=== PATIENT | male | born 1965 | race Caucasian/White ===

== ENCOUNTER 2021-08-16 12:48 | Inpatient (IN) | payer MEDICAID ==
[~2021-08-16] VITALS: Ht 182.9 cm; Wt 82.2 kg
[~2021-08-16 12:48] MED LIST: BENZ1TAB7 PO; DIVA-75 PO; DIVA250T4; HALO5TAB PO; MIRT-89 PO; RISP1TAB97 PO
[2021-08-16 14:01] LABS: BASOPHILS % 0.4 % (0.0-2.0); EOSINOPHILS % 2.4 % (0.0-5.0); HEMATOCRIT. 39.9 % (42.0-52.0); HEMOGLOBIN. 13.4 g/dL (14.0-18.0); MEAN CORPUSCULAR HEMOGLOBIN 29.6 pg (28.0-32.0); MEAN CORPUSCULAR VOLUME 87.9 fL (80.0-94.0); MEAN PLATELET VOLUME 7.6 fl (7.4-10.4); MONOCYTES % 11.6 % (2.0-8.0); NEUTROPHILS % 55.6 % (40.0-76.0); PLATELET 181 x1000/uL (130-400); RED BLOOD CELL COUNT 4.54 mill/uL (4.7-6.1); RED CELL DISTRIBUTION WIDTH 14.1 % (11.6-14.6)
[2021-08-16 14:10] LABS: CHLORIDE 101 mEq/L (98-107)
[2021-08-16 14:15] LABS: ETHANOL BLOOD < 10 mg/dL
[2021-08-16] MEDS ORDERED: SODIUM CHLORIDE 0.9% 1,000 ML IV ONE (14:45)
[2021-08-16] MEDS ORDERED: POTASSIUM CHLORIDE 20MEQ TABLET SR PO ONE (14:45)
[2021-08-16] MEDS ORDERED: LEVOFLOXACIN 750MG PREMIX 150 ML IV ONE (14:45)
[2021-08-16] MEDS ORDERED: LORAZEPAM 2MG/ML CPJ IV ONE (15:15)
[2021-08-16 15:57] LABS: INR 1.1; PARTIAL THROMBOPLASTIN TIME 26.5 sec (23.4-31.0); PROTHROMBIN TIME 11.5 sec (9.6-11.0)
[2021-08-16] MEDS: RISPERIDONE 1MG TABLET PO SCH (16:00)
[2021-08-16] MEDS: BENZTROPINE MESYLATE 1MG TABLET PO SCH (16:00)
[2021-08-16] MEDS ORDERED: DIVALPROEX SODIUM 500MG ER TABLET PO SCH (16:30)
[2021-08-16] MEDS ORDERED: IPRATROPIUM/ALBUTEROL 0.5-3(2.5)MG/3ML NEB HHN PRN (18:00)
[2021-08-16] MEDS ORDERED: HYDROCODONE/ACETAMINOPHEN 5/325MG TABLET PO PRN (18:00)
[2021-08-16] MEDS ORDERED: CLONIDINE 0.1MG TABLET PO PRN (18:00)
[2021-08-16] MEDS ORDERED: ACETAMINOPHEN 325MG TABLET PO PRN ×2 (18:00)
[2021-08-16] MEDS ORDERED: DOCUSATE SODIUM 100MG CAPSULE PO PRN (18:00)
[2021-08-16] MEDS ORDERED: ONDANSETRON HCL 4MG/2ML INJ IV PRN (18:00)
[2021-08-16] MEDS ORDERED: NALOXONE HCL 0.4MG/ML VIAL IV PRN (18:30)
[2021-08-16] MEDS: MIRTAZAPINE 15MG TABLET PO SCH (21:00)
[2021-08-16] MEDS ORDERED: ENOXAPARIN 80MG/0.8ML SYR SUBCUT ONE (22:00)
[2021-08-17 09:13] VITALS: BP 124/73
[2021-08-17] MEDS: RISPERIDONE 1MG TABLET PO SCH (10:01)
[2021-08-17] MEDS: BENZTROPINE MESYLATE 1MG TABLET PO SCH (10:01)
[2021-08-17 12:34] VITALS: BP 130/73
[2021-08-17] MEDS: ENOXAPARIN 80MG/0.8ML SYR SUBCUT SCH (14:00)
[2021-08-17 16:00] VITALS: BP 123/79
[2021-08-17 20:00] VITALS: BP 126/73
[2021-08-17] MEDS: MIRTAZAPINE 15MG TABLET PO SCH (20:44)
[2021-08-18] VITALS: BP_SYST 119; BP_SYST 128; BP_DIAS 51; BP_DIAS 76
[2021-08-18] MEDS: ENOXAPARIN 80MG/0.8ML SYR SUBCUT SCH ×3 (01:00→22:27)
[2021-08-18 04:00] VITALS: BP 120/79
[2021-08-18 08:01] VITALS: BP 124/68
[2021-08-18] MEDS: RISPERIDONE 1MG TABLET PO SCH (08:53)
[2021-08-18] MEDS: BENZTROPINE MESYLATE 1MG TABLET PO SCH (08:53)
[2021-08-18 12:00] VITALS: BP 111/63
[2021-08-18 20:00] VITALS: BP 138/88
[2021-08-18] MEDS: MIRTAZAPINE 15MG TABLET PO SCH (20:01)
[2021-08-18] MEDS: LORAZEPAM 0.5MG TABLET PO PRN (20:11)
[2021-08-19] VITALS: BP 119/51
[2021-08-19 04:00] VITALS: BP 109/62
[2021-08-19] MEDS: BENZTROPINE MESYLATE 1MG TABLET PO SCH (08:42)
[2021-08-19] MEDS: RISPERIDONE 1MG TABLET PO SCH (08:42)
[2021-08-19] MEDS: ENOXAPARIN 80MG/0.8ML SYR SUBCUT SCH ×2 (08:42→21:05)
[2021-08-19 12:00] VITALS: BP 125/81
[2021-08-19 16:00] VITALS: BP 132/76
[2021-08-19 17:12] LABS: *AMPHETAMINES SCREEN URINE NEGATIVE (NEGATIVE); *BARBITURATES SCREEN URINE NEGATIVE (NEGATIVE); *BENZODIAZEPINES SCREEN URINE NEGATIVE (NEGATIVE); *COCAINE SCREEN URINE NEGATIVE (NEGATIVE); METHADONE URINE SCREEN NEGATIVE (NEGATIVE)
[2021-08-19 17:13] LABS: CANNABINOID URINE SCREEN NEGATIVE (NEGATIVE); OPIATES URINE SCREEN NEGATIVE (NEGATIVE); PHENCYCLIDINE URINE SCREEN NEGATIVE (NEGATIVE)
[2021-08-19] MEDS: LORAZEPAM 0.5MG TABLET PO PRN (17:38)
[2021-08-19 18:15] VITALS: BP 132/76
[2021-08-19 20:00] VITALS: BP 122/72
[2021-08-19] MEDS: MIRTAZAPINE 15MG TABLET PO SCH (21:05)
[2021-08-20 04:00] VITALS: BP 116/74
[2021-08-20 04:32] VITALS: BP 122/72
[2021-08-20 07:22] LABS: BASOPHILS % 0.5 % (0.0-2.0); EOSINOPHILS % 3.7 % (0.0-5.0); HEMOGLOBIN. 14.4 g/dL (14.0-18.0); LYMPHOCYTES % 36.7 % (20.0-50.0); MEAN CORPUSCULAR HEMOGLOBIN 30.3 pg (28.0-32.0); MEAN CORPUSCULAR VOLUME 86.6 fL (80.0-94.0); MEAN PLATELET VOLUME 7.7 fl (7.4-10.4); MONOCYTES % 11.7 % (2.0-8.0); NEUTROPHILS % 47.4 % (40.0-76.0); PLATELET 189 x1000/uL (130-400); RED BLOOD CELL COUNT 4.74 mill/uL (4.7-6.1)
[2021-08-20 07:31] LABS: CHLORIDE 104 mEq/L (98-107)
[2021-08-20 08:00] VITALS: BP 121/65
[2021-08-20] MEDS: RISPERIDONE 1MG TABLET PO SCH (09:14)
[2021-08-20] MEDS: BENZTROPINE MESYLATE 1MG TABLET PO SCH (09:14)
[2021-08-20] MEDS: ENOXAPARIN 80MG/0.8ML SYR SUBCUT SCH ×2 (09:15→20:04)
[2021-08-20] MEDS ORDERED: APIX5TAB MT (12:02)
[2021-08-20] MEDS ORDERED: BENZ1TAB7 PO (12:02)
[2021-08-20] MEDS ORDERED: RISP1 PO (12:02)
[2021-08-20] MEDS ORDERED: MIRT-89 PO (12:02)
[2021-08-20] MEDS: LORAZEPAM 0.5MG TABLET PO PRN (15:45)
[2021-08-20 17:00] VITALS: BP 115/64
[2021-08-20] MEDS: MIRTAZAPINE 15MG TABLET PO SCH (20:04)
[2021-08-21] VITALS: BP 103/57
[2021-08-21 04:00] VITALS: BP 108/60
[2021-08-21 07:33] VITALS: BP 127/81
[2021-08-21] MEDS: BENZTROPINE MESYLATE 1MG TABLET PO SCH (08:51)
[2021-08-21] MEDS: ENOXAPARIN 80MG/0.8ML SYR SUBCUT SCH ×2 (08:51→20:29)
[2021-08-21] MEDS: RISPERIDONE 1MG TABLET PO SCH (08:51)
[2021-08-21 11:56] VITALS: BP 120/78
[2021-08-21 16:00] VITALS: BP 125/76
[2021-08-21 20:00] VITALS: BP 115/57
[2021-08-21] MEDS: MIRTAZAPINE 15MG TABLET PO SCH (20:29)
[2021-08-22] VITALS: BP 113/64
[2021-08-22 04:00] VITALS: BP 116/60
[2021-08-22 08:00] VITALS: BP 144/66
[2021-08-22] MEDS: BENZTROPINE MESYLATE 1MG TABLET PO SCH ×2 (09:11→17:47)
[2021-08-22] MEDS: ENOXAPARIN 80MG/0.8ML SYR SUBCUT SCH ×2 (09:11→20:16)
[2021-08-22] MEDS: RISPERIDONE 1MG TABLET PO SCH (09:11)
[2021-08-22 12:00] VITALS: BP 134/90
[2021-08-22 16:05] VITALS: BP 122/70
[2021-08-22 20:00] VITALS: BP 119/65
[2021-08-22] MEDS: MIRTAZAPINE 15MG TABLET PO SCH (20:15)
[2021-08-23] VITALS: BP 101/60
[2021-08-23 04:00] VITALS: BP 121/67
[2021-08-23 08:00] VITALS: BP 117/71
[2021-08-23] MEDS: ENOXAPARIN 80MG/0.8ML SYR SUBCUT SCH ×2 (09:13→20:25)
[2021-08-23] MEDS: RISPERIDONE 1MG TABLET PO SCH (09:14)
[2021-08-23] MEDS: BENZTROPINE MESYLATE 1MG TABLET PO SCH ×2 (09:14→16:50)
[2021-08-23] MEDS: DIVALPROEX SODIUM 500MG ER TABLET PO SCH (09:14)
[2021-08-23 12:00] VITALS: BP 122/67
[2021-08-23 16:01] VITALS: BP 133/67
[2021-08-23 20:00] VITALS: BP 118/68
[2021-08-23] MEDS: MIRTAZAPINE 15MG TABLET PO SCH (20:25)
[2021-08-24 04:00] VITALS: BP 105/65
[2021-08-24 06:44] LABS: CHLORIDE 105 mEq/L (98-107)
[2021-08-24 06:47] LABS: BASOPHILS % 0.6 % (0.0-2.0); EOSINOPHILS % 3.6 % (0.0-5.0); HEMATOCRIT. 37.3 % (42.0-52.0); HEMOGLOBIN. 12.9 g/dL (14.0-18.0); LYMPHOCYTES % 38.5 % (20.0-50.0); MEAN CORPUSCULAR HEMOGLOBIN 30.4 pg (28.0-32.0); MEAN CORPUSCULAR VOLUME 87.6 fL (80.0-94.0); MEAN PLATELET VOLUME 8.4 fl (7.4-10.4); MONOCYTES % 11.7 % (2.0-8.0); NEUTROPHILS % 45.6 % (40.0-76.0); PLATELET 174 x1000/uL (130-400); RED BLOOD CELL COUNT 4.25 mill/uL (4.7-6.1); RED CELL DISTRIBUTION WIDTH 13.9 % (11.6-14.6)
[2021-08-24 08:00] VITALS: BP 110/69
[2021-08-24] MEDS: ENOXAPARIN 80MG/0.8ML SYR SUBCUT SCH ×2 (08:28→20:20)
[2021-08-24] MEDS: DIVALPROEX SODIUM 500MG ER TABLET PO SCH (08:28)
[2021-08-24] MEDS: RISPERIDONE 1MG TABLET PO SCH (08:28)
[2021-08-24] MEDS: BENZTROPINE MESYLATE 1MG TABLET PO SCH ×2 (08:28→17:52)
[2021-08-24 12:10] VITALS: BP 108/68
[2021-08-24 16:21] VITALS: BP 132/82
[2021-08-24] MEDS ORDERED: POTASSIUM CHLORIDE 20MEQ TABLET SR PO NR (19:15)
[2021-08-24 19:23] VITALS: BP 114/63
[2021-08-24] MEDS: MIRTAZAPINE 15MG TABLET PO SCH (20:19)
[2021-08-25] VITALS (7 sets, daily range): BP systolic 104–144; BP diastolic 58–94
[2021-08-25] MEDS: DIVALPROEX SODIUM 500MG ER TABLET PO SCH (08:22)
[2021-08-25] MEDS: BENZTROPINE MESYLATE 1MG TABLET PO SCH ×2 (08:22→17:37)
[2021-08-25] MEDS: ENOXAPARIN 80MG/0.8ML SYR SUBCUT SCH ×2 (08:23→20:40)
[2021-08-25] MEDS: RISPERIDONE 1MG TABLET PO SCH (08:23)
[2021-08-25] MEDS: MIRTAZAPINE 15MG TABLET PO SCH (20:40)
[2021-08-26] VITALS: BP 111/47
[2021-08-26 04:00] VITALS: BP 108/61
[2021-08-26 08:00] VITALS: BP 139/72
[2021-08-26] MEDS: DIVALPROEX SODIUM 500MG ER TABLET PO SCH (09:37)
[2021-08-26] MEDS: BENZTROPINE MESYLATE 1MG TABLET PO SCH (09:38)
[2021-08-26] MEDS: RISPERIDONE 1MG TABLET PO SCH (09:38)
[2021-08-26] MEDS: ENOXAPARIN 80MG/0.8ML SYR SUBCUT SCH (09:39)
== END 2021-08-26 10:35 | disposition home or self-care (01) | DRG 817 ==
LOC: ER 12:48 → MICUSO 15:25 → EDBEDREQ 15:30 → EDBEDREQTM 15:30 → 6WST 08-17 07:25
PROVIDERS: ADMIT Internal Medicine; ATTEND Internal Medicine
DX: T42.6X2A Poisoning by other antiepileptic and sedative-hypnotic drugs, intentional self-harm, initial encounter (principal); I82.432 Acute embolism and thrombosis of left popliteal vein; R45.851 Suicidal ideations; E87.6 Hypokalemia; F20.9 Schizophrenia, unspecified; F31.9 Bipolar disorder, unspecified; I10 Essential (primary) hypertension; E86.0 Dehydration; G40.909 Epilepsy, unspecified, not intractable, without status epilepticus; Z20.822 Contact with and (suspected) exposure to COVID-19; Y92.89 Other specified places as the place of occurrence of the external cause; Z79.899 Other long term (current) drug therapy; Z88.0 Allergy status to penicillin; Z99.3 Dependence on wheelchair
CPT/HCPCS: 36415; 71045; 80048; 80053; 80165; 80305; 80307; 80320; 80329; 82140; 83605; 83880; 84484; 85025; 87426; 93005; 93970; 97161; 99285; C9803; J1650; J1956; J2060; J2405; J7030; U0003; U0005; G0480

== ENCOUNTER 2022-06-09 13:07 | Emergency (ER) | payer MEDICAID ==
[~2022-06-09] VITALS: Ht 177.8 cm; Wt 85.0 kg
[~2022-06-09 13:07] MED LIST changes: +APIX5TAB MT; -DIVA-75 PO; -DIVA250T4; -HALO5TAB PO; +RISP1 PO; -RISP1TAB97 PO
[2022-06-09] MEDS ORDERED: MUPIROCIN (13:14)
[2022-06-09] MEDS ORDERED: BACI28.432 TP (13:14)
[2022-06-09] MEDS ORDERED: HYDROCORTISONE (13:14)
[2022-06-09] MEDS ORDERED: DIVALPROEX (13:14)
[2022-06-09] MEDS ORDERED: XARELTO (13:14)
[2022-06-09] MEDS ORDERED: LATUDA (13:14)
[2022-06-09 14:23] LABS: BASOPHILS % 0.5 % (0.0-2.0); EOSINOPHILS % 2.8 % (0.0-5.0); HEMATOCRIT. 37.1 % (42.0-52.0); HEMOGLOBIN. 12.5 g/dL (14.0-18.0); LYMPHOCYTES % 35.7 % (20.0-50.0); MEAN CORPUSCULAR HEMOGLOBIN 28.3 pg (28.0-32.0); MEAN CORPUSCULAR VOLUME 83.9 fL (80.0-94.0); MEAN PLATELET VOLUME 7.5 fl (7.4-10.4); MONOCYTES % 10.6 % (2.0-8.0); NEUTROPHILS % 50.4 % (40.0-76.0); PLATELET 161 x1000/uL (130-400); RED BLOOD CELL COUNT 4.42 mill/uL (4.7-6.1); RED CELL DISTRIBUTION WIDTH 14.2 % (11.6-14.6)
[2022-06-09 14:29] LABS: CHLORIDE 102 mEq/L (98-107)
[2022-06-09 14:38] LABS: ETHANOL BLOOD < 10 mg/dL
[2022-06-09] MEDS ORDERED: POTASSIUM CHLORIDE 20MEQ TABLET SR PO ONE ×2 (15:45→18:15)
[2022-06-09 15:52] LABS: CLARITY URINE CLEAR (CLEAR); COLOR URINE YELLOW (YELLOW); KETONES URINE NEGATIVE (NEGATIVE); LEUKOCYTE ESTERASE URINE NEGATIVE (NEGATIVE); NITRITE URINE NEGATIVE (NEGATIVE); OCCULT BLOOD URINE NEGATIVE (NEGATIVE); PH URINE 7.5 (4.5-8.0); PROTEIN URINE NEGATIVE (NEGATIVE); SPECIFIC GRAVITY URINE 1.007 (1.005-1.030); UROBILINOGEN URINE 0.2 E.U./dL (0.2-1.0)
[2022-06-09 16:02] LABS: *AMPHETAMINES SCREEN URINE NEGATIVE (NEGATIVE); *BARBITURATES SCREEN URINE NEGATIVE (NEGATIVE); *BENZODIAZEPINES SCREEN URINE NEGATIVE (NEGATIVE); *COCAINE SCREEN URINE NEGATIVE (NEGATIVE); CANNABINOID URINE SCREEN NEGATIVE (NEGATIVE); METHADONE URINE SCREEN NEGATIVE (NEGATIVE); OPIATES URINE SCREEN NEGATIVE (NEGATIVE); PHENCYCLIDINE URINE SCREEN NEGATIVE (NEGATIVE)
[2022-06-09] MEDS ORDERED: MAGNESIUM OXIDE 400MG TABLET PO STA (16:59)
[2022-06-09 18:03] LABS: CHLORIDE 103 mEq/L (98-107)
[2022-06-10] MEDS ORDERED: HALOPERIDOL 5MG TABLET PO ONE (09:30)
[2022-06-10] MEDS: RISPERIDONE 1MG TABLET PO SCH ×2 (10:00→22:02)
[2022-06-10] MEDS ORDERED: HALOPERIDOL 5MG TABLET PO NR (11:30)
[2022-06-10] MEDS: MIRTAZAPINE 15MG TABLET PO SCH (21:00)
[2022-06-11] MEDS: RISPERIDONE 1MG TABLET PO SCH ×2 (10:11→21:00)
[2022-06-11] MEDS: MIRTAZAPINE 15MG TABLET PO SCH (21:00)
[2022-06-12] MEDS: RISPERIDONE 1MG TABLET PO SCH ×2 (09:48→21:40)
[2022-06-12 17:34] VITALS: BP 122/71
[2022-06-12] MEDS: MIRTAZAPINE 15MG TABLET PO SCH (21:40)
[2022-06-13] MEDS: RISPERIDONE 1MG TABLET PO SCH (09:13)
== END 2022-06-13 16:21 | disposition home or self-care (01) ==
LOC: ER 13:31
DX: R45.851 Suicidal ideations (principal); Z20.822 Contact with and (suspected) exposure to COVID-19; Z88.0 Allergy status to penicillin; Z86.59 Personal history of other mental and behavioral disorders; Z79.899 Other long term (current) drug therapy
CPT/HCPCS: 36415; 80048; 80053; 80305; 80307; 80320; 80329; 81003; 85025; 99285; C9803; U0003; U0005; G0480

== ENCOUNTER 2022-10-28 11:00 | Emergency (ER) | payer MEDICAID ==
[~2022-10-28] VITALS: Ht 177.8 cm; Wt 75.0 kg
[~2022-10-28 11:00] MED LIST changes: +BACI28.432 TP; +DIVALPROEX; +HYDROCORTISONE; +LATUDA; +MUPIROCIN; +XARELTO
[2022-10-28 11:05] VITALS: BP 162/87
[2022-10-28] MEDS ORDERED: BACITRACIN ZINC OINT UDPKT TOP ONE (12:00)
== END 2022-10-28 13:08 | disposition home or self-care (01) ==
LOC: ER 11:13
DX: S50.811A Abrasion of right forearm, initial encounter (principal); X58.XXXA Exposure to other specified factors, initial encounter; Y93.89 Activity, other specified; Y92.89 Other specified places as the place of occurrence of the external cause; F95.9 Tic disorder, unspecified; Z88.0 Allergy status to penicillin
CPT/HCPCS: 99282